=== PATIENT | male | born 1995 | race Two or more races ===

== ENCOUNTER 2018-05-20 17:15 | Emergency (ER) | payer OTHER ==
[2018-05-20 17:32] VITALS: BP 144/80
--- NOTE | 2018-05-20 18:01 | ED Physician Documentation ---
PD HPI SKIN - Stated complaint Stated Complaint: POSS ALLERGIC REACTION - Chief complaint Chief Complaint: General - History obtained from History obtained from: Patient - History of Present Illness Timing - onset: Today Timing - details: Still present Location: Scalp, Neck, Chest, Abdomen Quality / character: Itchy - Additional information Additional information: The patient is a 22-year-old [employer] male who presents with pruritic rash that started this morning and has continued throughout the day. He has noticed a fine erythema along his beltline, hairline, chest and abdomen. He has not been taking any medication, and is not aware of any exposures to any particular allergens. He denies fever, cough, or shortness of breath. He has previously had a vesicular rash for which he had been prescribed a steroid cream. He is not currently using the steroid cream because it did not help. Review of Systems Constitutional: denies: Fever, Fatigue Eyes: denies: Discharge, Irritation Ears: denies: Tinnitus/ringing Nose: denies: Congestion Throat: denies: Sore throat Respiratory: denies: Dyspnea, Cough GI: denies: Abdominal Pain, Nausea, Vomiting Skin: reports: Rash Musculoskeletal: denies: Joint pain Neurologic: denies: Headache PD PAST MEDICAL HISTORY - Past Medical History Respiratory: None Endocrine/Autoimmune: None - Present Medications Home Medications: Ambulatory Orders Medication Instructions Recorded Confirmed diphenhydrAMINE [Benadryl] 25 - 50 mg PO Q4-6H #30 capsule 05/20/18 - Social History Does the pt smoke?: No Smoking Status: Never smoker PD ED PE NORMAL - Vitals Vital signs reviewed: Yes (Systolic hypertension initially.) - General General: Alert and oriented X 3, Well developed/nourished - HEENT HEENT: Atraumatic, PERRL, EOMI, Ears normal, Pharynx benign - Neck Neck: Supple, no meningeal sign, No adenopathy - Cardiac Cardiac: RRR, No murmur - Respiratory Respiratory: No respiratory distress, Clear bilaterally - Abdomen Abdomen: Soft, Non tender - Back Back: No CVA TTP - Derm Derm: Other (There is a fine petechial rash scattered about the trunk, with more concentration at the belt line.) - Extremities Extremities: No edema, No calf tenderness / cord - Neuro Neuro: Alert and oriented X 3, No motor deficit, Normal speech Results - Vitals Vitals: Oxygen O2 Source Room air PD MEDICAL DECISION MAKING - ED course Complexity details: considered differential, d/w patient ED course: The underlying cause for the patient's rash is unclear at this time. It may be an allergic response to an as yet unknown allergen. There is no other clinical evidence to suggest an infectious etiology. I discussed with him symptomatic treatment, outpatient follow-up, as well as potentially worrisome signs or symptoms that should prompt reevaluation in the. He is being discharged with prescription for Benadryl. Departure - Departure Disposition: 01 Home, Self Care Clinical Impression: Rash and other nonspecific skin eruption Condition: Stable Instructions: ED Dermatitis Non Specific Rash Follow-Up: [facility] Vivas [Provider Group] Prescriptions: diphenhydrAMINE [Benadryl] 25 - 50 mg PO Q4-6H #30 capsule Comments: You can use Benadryl as prescribed if needed for itching. Follow-up with your primary physician within 1 week. Call to schedule appo intment. Return to the emergency department if you develop increasing rash or itching, any difficulty breathing, or otherwise worsening symptoms. Discharge Date/Time: 05/20/18 18:07
== END 2018-05-20 18:07 | disposition home or self-care (01) ==
LOC: ED 17:15
DX: R21 Rash and other nonspecific skin eruption (principal)
CPT/HCPCS: 99282; 99283